=== PATIENT | female | born 1950 | race African-American/Black ===

== ENCOUNTER 2024-05-06 13:21 | Emergency (ER) | payer MEDICAID, MEDICARE ==
[~2024-05-06] VITALS: Ht 165.1 cm; Wt 58.9 kg
[~2024-05-06 13:21] MED LIST: CARI350T28; DIAZ5TAB; IBUP-1008; TENORMIN; VIC
[2024-05-06 13:42] VITALS: O2SAT 95
[2024-05-06] MEDS ORDERED: IBUP-2029 MT (17:44)
[2024-05-06] MEDS ORDERED: CYCL5TAB3 MT (17:45)
[2024-05-06 18:11] VITALS: BP 168/90; PULSE 80; RESP 16; TEMP 36.7; O2SAT 95
== END 2024-05-06 18:12 | disposition home or self-care (01) ==
LOC: ER 13:48
DX: S70.01XA Contusion of right hip, initial encounter (principal); I10 Essential (primary) hypertension; M16.11 Unilateral primary osteoarthritis, right hip; Z79.1 Long term (current) use of non-steroidal anti-inflammatories (NSAID); Z96.642 Presence of left artificial hip joint; W18.39XA Other fall on same level, initial encounter; Y93.89 Activity, other specified; Y92.89 Other specified places as the place of occurrence of the external cause; Y99.8 Other external cause status
CPT/HCPCS: 73502; 99283